=== PATIENT | male | born 1990 | race Caucasian/White ===

== ENCOUNTER 2023-11-30 20:39 | Emergency (ER) | payer MEDICAID ==
[~2023-11-30] VITALS: Ht 172.7 cm; Wt 72.6 kg
[2023-11-30] MEDS: IBUPROFEN 600 MG TABLET PO ONE (21:30)
[2023-11-30] MEDS: AMOXICILLIN TRIHYDRATE 500 MG CAPSULE PO ONE (21:30)
[2023-11-30] MEDS ORDERED: AMOXICILLIN TRIHYDRATE 250 MG CAPSULE ONE (21:35)
[2023-11-30] MEDS ORDERED: IBUPROFEN 600 MG TABLET ONE (21:35)
[2023-11-30] MEDS ORDERED: AMOX500T2 PO (21:44)
[2023-11-30 22:01] VITALS: BP 118/77; TEMP 97.7; O2SAT 98
== END 2023-11-30 22:02 | disposition home or self-care (01) ==
LOC: ER 20:45
DX: H66.92 Otitis media, unspecified, left ear (principal)

== ENCOUNTER 2023-12-09 15:51 | Emergency (ER) | payer MEDICAID ==
[~2023-12-09] VITALS: Ht 167.6 cm; Wt 72.1 kg
[~2023-12-09 15:51] MED LIST: AMOX500T2 PO
[2023-12-09 16:43] VITALS: BP 134/69; TEMP 98.6; O2SAT 100
[2023-12-09] MEDS ORDERED: IBUP-1953 PO (18:23)
[2023-12-09] MEDS ORDERED: PSEU120T83 PO (18:23)
== END 2023-12-09 18:33 | disposition home or self-care (01) ==
LOC: ER 16:08
DX: H66.012 Acute suppurative otitis media with spontaneous rupture of ear drum, left ear (principal); Z79.899 Other long term (current) drug therapy